=== PATIENT | female | born 1990 | race Hispanic/Latino ===

== ENCOUNTER 2021-01-20 13:37 | Emergency (ER) | payer OTHER, SELFPAY | END 2021-01-20 14:55 | disposition home or self-care (01) | LOC: ERS 13:37 | DX: S16.1XXA Strain of muscle, fascia and tendon at neck level, initial encounter (principal); V43.62XA Car passenger injured in collision with other type car in traffic accident, initial encounter | CPT/HCPCS: 99283 ==